=== PATIENT | male | born 1940 | race Caucasian/White ===

== ENCOUNTER 2018-09-09 11:17 | Day surgery (SDC) | payer MEDICARE, BC ==
[~2018-09-09] VITALS: Ht 188 cm; Wt 88.6 kg
[~2018-09-09 11:17] MED LIST: DIOVAN320 MG PO; HCTZ25 MG PO; LIPITOR40 MG PO; NORVASC5 MG PO; PROTONIX40 MG PO; SKELAXIN800 MG PO; SYNTHROID25 MCG PO; TRAZODONE HCL50 MG PO; VIBERZI PO
[2018-09-09 11:36] LABS: BASOPHILS 0.3 % (0-2); EOSINOPHILS 0.8 % (0-7); HEMATOCRIT 43.3 % (42.0-54.0); HEMOGLOBIN 15.5 g/dL (13.5-17.5); IMMATURE GRANULOCYTES 0.3 % (0-5); LYMPHOCYTES 16.6 % (15-50); MCH 34.7 pg (26.0-34.0); MCHC 35.8 g/dL (31.0-37.0); MCV 96.9 fL (80.0-100.0); MONOCYTES 9.9 % (2-11); NEUTROPHILS 72.1 % (40-80); RBC 4.47 10x6/uL (4.20-6.10); RDW 12.7 % (11.5-14.5); WBC 3.9 10x3/uL (4.8-10.8)
[2018-09-09 11:40] LABS: PLATELET COUNT 141 10x3/uL (130-400)
[2018-09-09 11:44] LABS: CALC OSMOLALITY 276 mosm/kg (275-300); CALCIUM 8.8 mg/dL (8.5-10.1); CARBON DIOXIDE 31.2 mmol/L (21.0-32.0); CHLORIDE - SERUM 99 mmol/L (98-107); GLUCOSE 107 mg/dL (74-106); POTASSIUM - SERUM 3.5 mmol/L (3.5-5.1); SODIUM 139 mmol/L (136-145); UREA NITROGEN 11 mg/dL (7-18); eGFR NON AFRICAN AMERICAN 77 mL/min (90-120)
[2018-09-09] MEDS ORDERED: ED-SPAZ0.125 MG PO (15:32)
[2018-09-09] MEDS ORDERED: DEXILANT60 MG PO (15:32)
[2018-09-09] MEDS ORDERED: TESTOSTERONE CYP 200 (15:34)
[2018-09-09] MEDS ORDERED: COREG 3.1253.125 MG PO (15:34)
[2018-09-09] MEDS ORDERED: VERAMYST (15:35)
[2018-09-09] MEDS ORDERED: PROBIOTIC250 MG PO (15:35)
[2018-09-09] MEDS ORDERED: K-DUR20 MEQ PO (15:35)
[2018-09-09] MEDS ORDERED: VITAMIN D31000 UNIT PO (15:36)
[2018-09-09 15:40] VITALS: BP 178/110; Ht 188 cm; Wt 88.6 kg
--- NOTE | 2018-09-09 16:15 | NUR ---
RECEIVED FROM GI LAB. FAMILY AT BEDSIDE. ICE WATER AND ICE CREAM BROUGHT TO PT. DR IRBY IN AND TLAKING WITH PATIENT AND FAMILY.
--- NOTE | 2018-09-09 17:30 | NUR ---
IV DC'D WITH CATHETER INTACT. WRITTEN AND VERBAL DC INST. GIVEN TO PT ALONG WITH RX. VERBALIZED UNDERSTANDING.
--- NOTE | 2018-09-09 17:50 | NUR ---
DC'D HOME WITH FAMILY VIA PRIVATE VEHICLE.[place] VEHICLE VIA . STABLE AT TIME OF DC.
--- NOTE | 2018-09-10 18:23 | OP ---
PATIENT NAME: SAUL SPENCE MEDICAL RECORD: [id number] LOCATION:[facility] ADMISSION DATE: SURGEON: QUINCY IRBY MD DATE OF OPERATION: 09/09/2018 PROCEDURE: EGD with fecal transplantation. INDICATIONS: Mr. Spence is a delightful 77-year-old gentleman with a history of lymphocytic colitis. He failed treatment with other medication modalities such as Entocort EC (developed a rash), Pepto-Bismol, mesalamine products. He was ultimately treated with a fecal microbial transplantation via EGD route in December 2015 with excellent results. Over the past 4-6 months, he has had some recurrence of his diarrhea, intermittent. He uses Viberzi p.r.n. He presents for outpatient fecal microbial transplantation. PREMEDICATIONS: Total IV anesthesia (coronary artery disease), propofol was 200 mg. INSTRUMENT: Ultius video pediatric colonoscope. PROCEDURE AND FINDINGS: After receiving informed consent, Mr. Spence's posterior pharynx was anesthetized with Cetacaine spray. He was placed in left lateral decubitus position, sedated as per anesthesia. After achieving an adequate level of sedation, colonoscope was introduced per orally and advanced into the jejunum without difficulty. In the proximal esophagus, there were multiple small white plaques consistent with mild candidiasis. A nonobstructive Schatzki's ring was noted at the GE junction. Small hiatal hernia is present. Visualized gastric mucosa was notable for [id number] erythema in the antrum. Pylorus was patent and competent. The scope was advanced to 160 cm into the jejunum. Then, 60 cc of fecal microbial transplant was deployed through the colonoscope and followed by 120 cc of wash. Then, colonoscope was withdrawn. Mr. Spence tolerated the procedure well and no immediate complications. ASSESSMENT: 1. 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 2. Nonobstructive Schatzki's ring. 3. Small hiatal hernia. 4. Mild to moderate gastritis. RECOMMENDATIONS: 1. Avoid antibiotics for several months. 2. Continue Viberzi p.r.n. TRANSINT:[id number] Voice Confirmation ID: [id number] DOCUMENT ID: [id number] cc: Per Coley APN OPERATIVE REPORT [id number] SAUL SPENCE QUINCY IRBY MD at 1823 CC: PER COLEY APN [id number] DICTATION DATE: 09/09/18 1617 JET INSPECTOR: [id number]/[id number] [facility] 09/09/18 [facility] [address] [place] [address]
== END 2018-09-09 17:50 | disposition home or self-care (01) ==
LOC: D.OPS 11:17
PROVIDERS: Anesthesiology; ATTEND Internal Medicine Gastroenterology
DX: K52.832 Lymphocytic colitis (principal); K22.2 Esophageal obstruction; K44.9 Diaphragmatic hernia without obstruction or gangrene; K29.70 Gastritis, unspecified, without bleeding; I25.10 Atherosclerotic heart disease of native coronary artery without angina pectoris; Z01.812 Encounter for preprocedural laboratory examination